=== PATIENT | female | born 2000 | race Two or more races ===

== ENCOUNTER 2024-02-15 15:48 | Emergency (ER) | payer OTHER ==
[~2024-02-15] VITALS: Ht 170.2 cm; Wt 63.5 kg
[2024-02-15] MEDS ORDERED: CEFTRIAXONE SODIUM 1,000 MG VIAL IM ONE (21:00)
[2024-02-15] MEDS ORDERED: KETOROLAC TROMETHAMINE 60 MG VIAL IM ONE (21:00)
[2024-02-15] MEDS ORDERED: AMOX-CLAV 875-1 EACH PO (21:02)
[2024-02-15] MEDS ORDERED: OFLOXACIN5 M1 OPHT (21:02)
== END 2024-02-15 21:16 ==
LOC: ER 15:49
DX: H60.92 Unspecified otitis externa, left ear (principal); H92.02 Otalgia, left ear